=== PATIENT | male | born 1945 | race Caucasian/White ===

== ENCOUNTER 2017-03-04 18:30 | Emergency (ER) | payer OTHER ==
[~2017-03-04] VITALS: Ht 177.8 cm; Wt 91.0 kg
[2017-03-04 18:30] VITALS: BP 159/79; PULSE 78; RESP 18; TEMP 98.9; O2SAT 96
[~2017-03-04 18:30] MED LIST: LEVO125T3 PO; LEVO500T3 PO; LISI-363 PO; LOPR50TA12 PO; MEDR4PAK3 PO; METO50CR PO; ROBA750T3 PO; TERA10CA3 PO
--- NOTE | 2017-03-04 18:47 | PD ---
Physical Exam Date Seen by Provider: Mar 04, 2017 Time Seen by Provider: 18:46 Data Data Last Documented VS Vital Signs Date Time Temp Pulse Resp B/P (MAP) Pulse Ox O2 Delivery O2 Flow Rate FiO2 03/04/17 18:30 98.9 78 18 159/79 (105) 96 Room Air MDM Supervised Visit with JASPAL: No Narrative Course 71 YO M with complaint of "spurting blood from a cut on my arm." Patient states that he was cut by tile while demo-ing a wall. Denies blood blood thinners. Vitals reviewed. Patient seen in triage, awaiting bed placement. Farida Casarez Mar 04, 2017 18:47
[2017-03-04] MEDS ORDERED: TERA10CA3 PO (23:44)
[2017-03-04] MEDS ORDERED: METO50TA11 PO (23:44)
[2017-03-04] MEDS ORDERED: LEVO125T4 PO (23:44)
[2017-03-04] MEDS ORDERED: LISI-515 PO (23:44)
== END 2017-03-04 19:40 | disposition left against medical advice (07) ==
LOC: NED 18:30
DX: S51.811A Laceration without foreign body of right forearm, initial encounter (principal); W26.8XXA Contact with other sharp object(s), not elsewhere classified, initial encounter
CPT/HCPCS: 99281

== ENCOUNTER 2017-03-04 23:20 | Emergency (ER) | payer OTHER ==
[2017-03-04 23:25] VITALS: BP 145/76; PULSE 85; RESP 16; TEMP 98.4; O2SAT 96
[2017-03-04] MEDS ORDERED: TERA10CA3 PO (23:44)
[2017-03-04] MEDS ORDERED: LISI-515 PO (23:44)
[2017-03-04] MEDS ORDERED: METO50TA11 PO (23:44)
[2017-03-04] MEDS ORDERED: LEVO125T4 PO (23:44)
[2017-03-05] MEDS ORDERED: TETANUS/DIPHTHERIA TOXOID ADULT 0.5 ML VIAL IM ONE (01:00)
--- NOTE | 2017-03-05 01:03 | PD ---
HPI Chief Complaint: Skin Problem Time Seen by Provider: 00:45 Travel History International Travel<30 days: No Contact w/Intl Traveler<30days: No Traveled to known affect area: No History of Present Illness HPI 71-year-old male presents for evaluation of a puncture wound to the right forearm. He reports that at 7 PM this evening he was using a crowbar to breakdown and some tile in his bathroom when a piece of tile broke off and hit him in the right forearm. He had some bleeding and he reports that there was some "pulsating" bleeding briefly which resolved. For this reason he presents for evaluation. Denies pain, numbness, tingling, range of motion limitation. Last tetanus vaccination unknown. No other complaints. PFSH Past Medical History Arthritis: Yes Cardiovascular Problems: Yes COPD: Yes Diminished Hearing: No GERD: Yes Genitourinary: Yes Hypertension: Yes Kidney Stones: Yes Musculoskeletal: Yes Neurologic: No Respiratory: Yes Immunizations Current: Yes Sleep Apnea: Yes (wears CPAP) Thyroid Disease: Yes Past Surgical History Genitourinary Surgery: Yes Other Surgery: Yes Social History Alcohol Use: Yes (SOCIALLY) Tobacco Use: Yes (PPD) Substance Use: Yes (marijuana) Allergies-Medications (Allergen,Severity, Reaction): Coded Allergies: Sulfa (Sulfonamide Antibiotics) (Unverified Allergy, Severe, 03/04/17) Reported Meds & Prescriptions Reported Meds & Active Scripts Active Reported Lisinopril 20 Mg Tab 20 Mg PO DAILY Terazosin (Terazosin HCl) 10 Mg Cap 10 Mg PO HS Metoprolol Succinate ER 24 HR (Metoprolol Succinate) 50 Mg Tab 50 Mg PO DAILY Levothyroxine (Levothyroxine Sodium) 125 Mcg Tab 125 Mcg PO DAILY Review of Systems Musculoskeletal: No: Limited ROM, Pain Skin: Positive Other (puncture wound, bleeding) Neurologic: No: Paresthesia Physical Exam Narrative GENERAL: Well-developed well-nourished male in no acute distress SKIN: Warm and dry. There is a 2 mm puncture wound to the dorsal right mid forearm which is not bleeding. No palpable foreign bodies. CARDIOVASCULAR: Regular rate and rhythm. No murmur appreciated. RESPIRATORY: No accessory muscle use. Clear to auscultation. Breath sounds equal bilaterally. MUSCULOSKELETAL: Skin as noted above with no obvious deformity. Distal sensation, pulses preserved. Data Data Last Documented VS Vital Signs Date Time Temp Pulse Resp B/P (MAP) Pulse Ox O2 Delivery O2 Flow Rate FiO2 03/04/17 23:25 98.4 85 16 145/76 (99) 96 Orders Orders Forearm (2vws) (03/05/17 ) Tetanus/Diphtheria Tox Adult (Tetanus/Di (03/05/17 01:00) MDM Medical Decision Making Medical Screen Exam Complete: Yes Emergency Medical Condition: Yes Medical Record Reviewed: Yes Differential Diagnosis Puncture wound, laceration, retained foreign body, neurovascular injury Narrative Course 71-year-old male here for evaluation of a small puncture wound to the dorsal right forearm sustained by a piece of tile. X-ray imaging to rule out radiopaque foreign body will be obtained. The laceration is not bleeding at all even with manipulation and there is no evidence of a major vascular injury. The wound was thoroughly irrigated and then repaired with Dermabond, he verbally consented. Tetanus status updated. Procedures Procedure Narrative LACERATION LOCATION: 2 mm LENGTH: Right forearm NUMBER OF STITCHES/TODD: Dermabond REPAIR: The wound was copiously irrigated and explored without evidence of foreign body, tendon injury or neurovascular injury. The wound was closed using Dermabond. This was a single layer repair. A sterile dressing was applied. The patient was advised to keep the dressing clean and dry. Patient tolerated the procedure well. Diagnosis Primary Impression: Puncture wound Additional Instructions: Keep the wound clean and dry. Do not put any creams or lotions on the wound. The glue will flake off on its own over the next few weeks. Med/Other Pt SpecificInfo: Wound Care Disposition: 01 DISCHARGE HOME Condition: Stable Luis Wood Mar 05, 2017 01:03
--- NOTE | 2017-03-05 01:34 | RADRPT ---
EXAM DATE/TIME: 03/05/2017 01:08 [facility] COMPARISON: No previous studies available for comparison. INDICATIONS : Evaluate for foreign body post cut right proximal forearm with tile. MEDICAL HISTORY : Hypertension. SURGICAL HISTORY : None. ENCOUNTER: Initial ACUITY: 1 day PAIN SCORE: 7/10 LOCATION: Right upper extremity FINDINGS: Two view examination of the right forearm demonstrates no evidence of fracture or dislocation. Bony mineralization is normal. The soft tissue structures are intact. CONCLUSION: 1. No acute findings. No radiopaque foreign body identified. Michael Cevallos MD on March 05, 2017 at 1:32 Board Certified Radiologist. This report was verified electronically.
== END 2017-03-05 02:13 | disposition home or self-care (01) ==
LOC: NED 23:20 → NEPK 03-05 02:13
DX: S51.811A Laceration without foreign body of right forearm, initial encounter (principal); W26.8XXA Contact with other sharp object(s), not elsewhere classified, initial encounter; Y93.H3 Activity, building and construction; Y92.012 Bathroom of single-family (private) house as the place of occurrence of the external cause; Z23 Encounter for immunization
CPT/HCPCS: 12001; 73090; 90471; 90714

== ENCOUNTER 2017-09-28 13:24 | Inpatient (IN) | payer OTHER, MEDICARE ==
[2017-09-28] VITALS (7 sets, daily range): BP systolic 103–147; BP diastolic 60–89; PULSE 59–83; RESP 16–18; TEMP 100.4; O2SAT 94–97
[~2017-09-28] VITALS: Ht 177.8 cm; Wt 92.1 kg
[~2017-09-28 13:24] MED LIST changes: -LEVO125T3 PO; +LEVO125T4 PO; -LEVO500T3 PO; -LISI-363 PO; +LISI-515 PO; -LOPR50TA12 PO; -MEDR4PAK3 PO; +METO1TAB9 PO; -METO50CR PO; -ROBA750T3 PO
--- NOTE | 2017-09-28 15:47 | RADRPT ---
EXAM DATE/TIME: 09/28/2017 15:30 [facility] COMPARISON: FOREARM RIGHT (2VWS), March 05, 2017, 1:08. INDICATIONS : Nausea and vomiting for one day with shortness of breath for three months. MEDICAL HISTORY : Hypertension. Chronic obstructive pulmonary disease. SURGICAL HISTORY : None. ENCOUNTER: Initial ACUITY: 3 months PAIN SCORE: 0/10 LOCATION: Bilateral chest FINDINGS: A single view of the chest demonstrates the lungs to be symmetrically aerated without evidence of mas s, infiltrate or effusion. The cardiomediastinal contours are unremarkable. Osseous structures are intact. CONCLUSION: 1. No acute cardiopulmonary findings are identified. Dre Traylor MD on September 28, 2017 at 15:44 Board Certified Radiologist. This report was verified electronically.
[2017-09-28 16:03] LABS: AUTOMATED NEUTROPHIL # 11.9 TH/MM3 (1.8-7.7); BASOPHIL % 0.3 % (0.0-2.0); EOSINOPHIL # 0.1 TH/MM3 (0-0.4); EOSINOPHIL % 0.9 % (0.0-4.0); HEMATOCRIT 44.5 % (39.0-51.0); HEMOGLOBIN 14.9 GM/DL (13.0-17.0); LYMPHOCYTE # 1.7 TH/MM3 (1.0-4.8); MEAN CELL VOLUME 94.9 FL (80.0-100.0); MEAN CORPUSCULAR HEMOGLOBIN 31.8 PG (27.0-34.0); MEAN CORPUSCULAR HGB CONC 33.5 % (32.0-36.0); MEAN PLATELET VOLUME 8.6 FL (7.0-11.0); MONO % 3.7 % (0.0-8.0); MONOCYTE # 0.5 TH/MM3 (0-0.9); NEUT % 83.1 % (16.0-70.0); PLATELET COUNT 189 TH/MM3 (150-450); RED BLOOD COUNT 4.68 MIL/MM3 (4.50-5.90); RED CELL DISTRIBUTION WIDTH 14.8 % (11.6-17.2); WHITE BLOOD COUNT 14.3 TH/MM3 (4.0-11.0)
[2017-09-28 16:09] LABS: BICARBONATE 27.4 MEQ/L (21.0-32.0); BLOOD UREA NITROGEN 23 MG/DL (7-18); CHLORIDE 104 MEQ/L (98-107); CREATININE 1.79 MG/DL (0.60-1.30); GLOMERULAR FILTRATION RATE 38 ML/MIN (>89); GLUCOSE,RANDOM 97 MG/DL (74-106); SODIUM (NA) 140 MEQ/L (136-145)
[2017-09-28 16:12] LABS: TROPONIN I LESS THAN 0.02 NG/ML (0.02-0.05)
[2017-09-28] MEDS ORDERED: ALUMINUM/MAGNESIUM/SIMETH 30 ML CUP PO ONE (16:15)
[2017-09-28] MEDS ORDERED: LIDOCAINE VISCOUS 2% SOLN 15 ML UDC SWISH-SPIT ONE (16:15)
--- NOTE | 2017-09-28 17:27 | PD ---
HPI Chief Complaint: Respiratory Symptoms Time Seen by Provider: 15:36 Travel History International Travel<30 days: No Contact w/Intl Traveler<30days: No Traveled to known affect area: No History of Present Illness HPI 72-year-old male with a history of COPD, presents today with complaints of shortness of breath and epigastric pain. Patient states that over the last several weeks, he has had progressive shortness of breath. He states that it gets to the point where he feels as though he cannot catch his breath. Patient denies any productive phlegm. He does report coughing and still smokes cigarettes. Patient also reports of pain in his epigastrium. He reports it as a sharp intermittent pain that comes and goes. He reports there is no radiation other than through to his back. There is no exertional component. The patient states he gets winded walking short distances. The patient also states he has felt warm and has had chills. PFSH Past Medical History Arthritis: Yes Cardiovascular Problems: Yes COPD: Yes Diminished Hearing: No GERD: Yes Genitourinary: Yes Hypertension: Yes Kidney Stones: Yes Musculoskeletal: Yes Neurologic: No Respiratory: Yes Immunizations Current: Yes Sleep Apnea: Yes (CPAP) Thyroid Disease: Yes (HYPO ) Past Surgical History Genitourinary Surgery: Yes Other Surgery: Yes Social History Alcohol Use: Yes (SOCIALLY) Tobacco Use: Yes (PPD) Substance Use: Yes (marijuana) Allergies-Medications (Allergen,Severity, Reaction): Coded Allergies: Sulfa (Sulfonamide Antibiotics) (Unverified Allergy, Severe, 09/28/17) Reported Meds & Prescriptions Reported Meds & Active Scripts Active Reported Lisinopril 20 Mg Tab 20 Mg PO DAILY Terazosin (Terazosin HCl) 10 Mg Cap 10 Mg PO HS Metoprolol Succinate ER 24 HR (Metoprolol Succinate) 50 Mg Tab 50 Mg PO DAILY Levothyroxine (Levothyroxine Sodium) 125 Mcg Tab 125 Mcg PO DAILY Review of Systems Except as stated in HPI: all other systems reviewed are Neg General / Constitutional: Positive: Fever ([place] warm), Chills ([place] cold as well) HENT: No: Headaches, Lightheadedness Cardiovascular: Positive: Chest Pain or Discomfort, No: Palpitations Respiratory: Positive: Shortness of Breath, No: Cough, Wheezing Gastrointestinal: Positive: Abdominal Pain (Epigastric pain), No: Nausea, Vomiting Genitourinary: No: Frequency, Dysuria Musculoskeletal: No: Weakness, Pain Neurologic: No: Weakness, Dizziness, Headache Physical Exam Narrative GENERAL: Well-developed well-nourished male in no acute respiratory distress. SKIN: Focused skin assessment warm/dry. HEAD: Atraumatic. Normocephalic. EYES: No scleral icterus. No injection or drainage. ENT: No nasal bleeding or discharge. Mucous membranes pink and moist. NECK: Trachea midline. Supple. CARDIOVASCULAR: Regular rate and rhythm. No murmur appreciated. RESPIRATORY: No accessory muscle use. Clear to auscultation. Breath sounds equal bilaterally. GASTROINTESTINAL: Abdomen soft, non-tender, nondistended. Subjectively, patient has pain in his epigastrium that is not reproducible on exam. MUSCULOSKELETAL: No obvious deformities. No clubbing. No cyanosis. No edema. NEUROLOGICAL: Awake and alert. No obvious cranial nerve deficits. Motor grossly within normal limits. Normal speech. PSYCHIATRIC: Appropriate mood and affect; insight and judgment normal. Data Data Last Documented VS Vital Signs Date Time Temp Pulse Resp B/P (MAP) Pulse Ox O2 Delivery O2 Flow Rate FiO2 09/28/17 15:49 73 18 147/89 (108) 96 Room Air 09/28/17 14:08 100.4 Orders Orders Electrocardiogram (09/28/17 15:01) Complete Blood Count With Diff (09/28/17 15:01) Basic Metabolic Panel (Bmp) (09/28/17 15:01) Ckmb (Isoenzyme) Profile (09/28/17 15:01) Troponin I (09/28/17 15:01) Chest, Single Ap (09/28/17 15:01) Influenzae A/B Antigen (09/28/17 15:45) Al-Mag Hy-Si 40-40-4 Mg/Ml Liq (Mag-Al P (09/28/17 16:15) Lidocaine 2% Viscous (Xylocaine 2% Visco (09/28/17 16:15) CKMB (09/28/17 15:15) CKMB% (09/28/17 15:15) Arterial Blood Gas (Abg) (09/28/17 17:16) Admit Order (Ed Use Only) (09/28/17 18:06) Labs Laboratory Tests Test 09/28/17 15:15 White Blood Count 14.3 TH/MM3 Red Blood Count 4.68 MIL/MM3 Hemoglobin 14.9 GM/DL Hematocrit 44.5 % Mean Corpuscular Volume 94.9 FL Mean Corpuscular Hemoglobin 31.8 PG Mean Corpuscular Hemoglobin Concent 33.5 % Red Cell Distribution Width 14.8 % Platelet Count 189 TH/MM3 Mean Platelet Volume 8.6 FL Neutrophils (%) (Auto) 83.1 % Lymphocytes (%) (Auto) 12.0 % Monocytes (%) (Auto) 3.7 % Eosinophils (%) (Auto) 0.9 % Basophils (%) (Auto) 0.3 % Neutrophils # (Auto) 11.9 TH/MM3 Lymphocytes # (Auto) 1.7 TH/MM3 Monocytes # (Auto) 0.5 TH/MM3 Eosinophils # (Auto) 0.1 TH/MM3 Basophils # (Auto) 0.0 TH/MM3 CBC Comment DIFF FINAL Differential Comment Blood Urea Nitrogen 23 MG/DL Creatinine 1.79 MG/DL Random Glucose 97 MG/DL Calcium Level 9.0 MG/DL Sodium Level 140 MEQ/L Potassium Level 3.8 MEQ/L Chloride Level 104 MEQ/L Carbon Dioxide Level 27.4 MEQ/L Anion Gap 9 MEQ/L Estimat Glomerular Filtration Rate 38 ML/MIN Total Creatine Kinase 453 U/L Creatine Kinase MB 3.5 NG/ML Creatine Kinase MB % 0.8 % Troponin I LESS THAN 0.02 NG/ML MDM Medical Decision Making Medical Screen Exam Complete: Yes Emergency Medical Condition: Yes Differential Diagnosis COPD exacerbation versus peptic ulcer disease versus ACS Narrative Course 72-year-old male with history of COPD, presents today with complaints of shortness of breath. Patient also complaining of epigastric pain. Patient's EKG shows inverted T waves in V2 through V6. The patient's cardiac enzymes are within normal limits. Concern is that this may be ACS. The patient has been given an aspirin. He is also has nitroglycerin paste placed on his anterior chest wall. Given his EKG changes, I will recommend that we put the patient in the hospital rather than the chest pain center. There is a call out to the [facility] hospitalist for admission. Diagnosis Primary Impression: Shortness of breath Additional Impressions: Epigastric pain/chest pain. History of COPD Rudolph Hsu MD Sep 28, 2017 17:27
[2017-09-28] MEDS ORDERED: SENNOSIDES 8.6 MG TAB PO PRN (18:15)
[2017-09-28] MEDS ORDERED: SODIUM CHLORIDE 0.9% FLUSH 10 ML FLUSH IV FLUSH PRN (18:15)
[2017-09-28] MEDS ORDERED: LACTULOSE SYRUP 20 GM/30 ML CUP PO PRN (18:15)
[2017-09-28] MEDS ORDERED: NITROGLYCERIN 2% OINT 1 GM PACKET TOPICAL ONE (18:15)
[2017-09-28] MEDS ORDERED: NALOXONE HCL 0.4 MG/ML AMP IV PUSH PRN (18:15)
[2017-09-28] MEDS ORDERED: ASPIRIN 81 MG CHEW TAB CHEW ONE (18:15)
[2017-09-28] MEDS ORDERED: ACETAMINOPHEN 325 MG TAB PO PRN (18:15)
[2017-09-28] MEDS ORDERED: BISACODYL 10 MG SUPP RECTAL PRN (18:15)
[2017-09-28] MEDS: SODIUM CHLOR 0.9% 1000 ML INJ 1,000 ML IV SCH (18:57)
[2017-09-28] MEDS: ONDANSETRON HCL 4 MG/2 ML VIAL IVP PRN (18:59)
[2017-09-28] MEDS: RESP: ALBUTEROL 2.5 MG/IPRATROPIUM 0.5 MG NEB (SCH) NEB ×2 (19:23→23:56)
--- NOTE | 2017-09-28 20:38 | HHI.HP ---
HPI [facility] Primary Care Physician Griselda Chavarria MD Admission Diagnosis Shortnes of breath, epigastric pain/chest pain, ekg changes Diagnoses: Travel History International Travel<30 Days: No Contact w/Intl Traveler <30 Da: No Traveled to Known Affected Are: No History of Present Illness -year-old male with a past medical history significant for hypertension, COPD, hypothyroidism and JARETH presents to the emergency department for evaluation of epigastric pain. The patient states that his pain is in the epigastrium and radiates to his shoulder blades and is has accompanying lower substernal pain/ pressure. He describes pain as an 8 out of 10. He has a two-month history of this pain occurring intermittently. He has a cough productive of yellowish- green sputum. He also complains of paroxysmal nocturnal dyspnea. The patient denies any edema. Has no diagnosis of CHF. He works as accompanying shortness of breath and nausea. No emesis or diarrhea. No lateralizing signs/symptoms. Denies any fever/chills. Review of Systems Except as stated in HPI: all other systems reviewed are Neg Past Family Social History Past Medical History hypertension, COPD, hypothyroidism and JARETH Past Surgical History Laminectomy Reported Medications Reported Meds & Active Scripts Active Reported Lisinopril 20 Mg Tab 20 Mg PO DAILY Terazosin (Terazosin HCl) 10 Mg Cap 10 Mg PO HS Metoprolol Succinate ER 24 HR (Metoprolol Succinate) 50 Mg Tab 50 Mg PO DAILY Levothyroxine (Levothyroxine Sodium) 125 Mcg Tab 125 Mcg PO DAILY Allergies: Coded Allergies: Sulfa (Sulfonamide Antibiotics) (Unverified Allergy, Severe, 09/28/17) Family History Mother with diabetes mellitus. Father of [place] at age 48. Social History Smokes approximately one pack per day. Occasional alcohol. Positive marijuana. Denies all other illicit drugs. Physical Exam Vital Signs Vital Signs Date Time Temp Pulse Resp B/P (MAP) Pulse Ox O2 Delivery O2 Flow Rate FiO2 09/28/17 19:13 73 18 109/63 (78) 95 Room Air 09/28/17 18:21 80 18 130/78 (95) 97 Room Air 09/28/17 15:49 73 18 147/89 (108) 96 Room Air 09/28/17 15:45 80 18 96 Room Air 09/28/17 14:08 100.4 83 16 146/88 (107) 96 Physical Exam GENERAL: Obese, male sitting up SKIN: No rashes, ecchymoses or lesions. Cool and dry. HEAD: Atraumatic. Normocephalic. No temporal or scalp tenderness. EYES: Pupils equal round and reactive. Extraocular motions intact. No scleral icterus. No injection or drainage. ENT: Nose without bleeding, purulent drainage or septal hematoma. Throat without erythema, tonsillar hypertrophy or exudate. Uvula midline. Airway patent. NECK: Trachea midline. No JVD or lymphadenopathy. Supple, nontender, no meningeal signs. CARDIOVASCULAR: Regular rate and rhythm without murmurs, gallops, or rubs. RESPIRATORY: Bilateral expiratory wheezes. GASTROINTESTINAL: Abdomen soft, non-tender, nondistended. No hepato-splenomegaly , or palpable masses. MUSCULOSKELETAL: Extremities without clubbing, cyanosis, or edema. No joint tenderness, effusion, or edema noted. No calf tenderness. NEUROLOGICAL: Awake and alert. Cranial nerves II through XII intact. Motor and sensory grossly within normal limits. Normal speech. Laboratory Laboratory Tests Test 09/28/17 15:15 09/28/17 17:22 White Blood Count 14.3 Red Blood Count 4.68 Hemoglobin 14.9 Hematocrit 44.5 Mean Corpuscular Volume 94.9 Mean Corpuscular Hemoglobin 31.8 Mean Corpuscular Hemoglobin Concent 33.5 Red Cell Distribution Width 14.8 Platelet Count 189 Mean Platelet Volume 8.6 Neutrophils (%) (Auto) 83.1 Lymphocytes (%) (Auto) 12.0 Monocytes (%) (Auto) 3.7 Eosinophils (%) (Auto) 0.9 Basophils (%) (Auto) 0.3 Neutrophils # (Auto) 11.9 Lymphocytes # (Auto) 1.7 Monocytes # (Auto) 0.5 Eosinophils # (Auto) 0.1 Basophils # (Auto) 0.0 CBC Comment DIFF FINAL Differential Comment Blood Urea Nitrogen 23 Creatinine 1.79 Random Glucose 97 Calcium Level 9.0 Sodium Level 140 Potassium Level 3.8 Chloride Level 104 Carbon Dioxide Level 27.4 Anion Gap 9 Estimat Glomerular Filtration Rate 38 Total Creatine Kinase 453 Creatine Kinase MB 3.5 Creatine Kinase MB % 0.8 Troponin I LESS THAN 0.02 Blood Gas Puncture Site RT RADIAL Blood Gas Patient Temperature 98.6 Blood Gas HCO3 25 Blood Gas Base Excess 1.3 Blood Gas Oxygen Saturation 93 Arterial Blood pH 7.48 Arterial Blood Partial Pressure CO2 33 Arterial Blood Partial Pressure O2 77 Arterial Blood Oxygen Content 18.5 Arterial Blood Carboxyhemoglobin 2.3 Arterial Blood Methemoglobin 0.9 Blood Gas Hemoglobin 14.1 Oxygen Delivery Device ROOM AIR Blood Gas Inspired Oxygen 21 Date/Time Source Procedure Growth Status 09/28/17 17:18 Nasal Aspirate Influenza Types A,B Antigen (DENITA) - Final NEGATIVE FOR FLU A AND B ANTIGEN.... Complete Result Diagram: 09/28/17 1515 09/28/17 1515 Caprini VTE Risk Assessment Caprini VTE Risk Assessment: Mod/High Risk (score >= 2) Caprini Risk Assessment Model Point Value = 1 Point Value = 2 Point Value = 3 Point Value = 5 Age 41-60 Minor surgery BMI > 25 kg/m2 Swollen legs Varicose veins or History of unexplained or recurrent spontaneous Oral contraceptives or hormone replacement Sepsis (< 1 month) Serious lung disease, including pneumonia (< 1 month) Abnormal pulmonary function Acute myocardial infarction Congestive heart failure (< 1 month) History of inflammatory bowel disease Medical patient at bed rest Age 61-74 Arthroscopic surgery Major open surgery (> 45 min) Laparoscopic surgery (> 45 min) Malignancy Confined to bed (> 72 hours) Immobilizing plaster cast Central venous access Age >= 75 History of VTE Family history of VTE Factor V Leiden Prothrombin [id number] Lupus anticoagulant Anticardiolipin antibodies Elevated serum homocysteine Heparin-induced thrombocytopenia Other congenital or acquired thrombophilia Stroke (< 1 month) Elective arthroplasty Hip, pelvis, or leg fracture Acute spinal cord injury (< 1 month) Prophylaxis Regimen Total Risk Factor Score Risk Level Prophylaxis Regimen 0-1 Low Early ambulation 2 Moderate Order ONE of the following: *Sequential Compression Device (SCD) *Heparin 5000 units SQ BID 3-4 Higher Order ONE of the following medications: *Heparin 5000 units SQ TID *Enoxaparin/Lovenox 40 mg SQ daily (WT < 150 kg, CrCl > 30 mL/min) *Enoxaparin/Lovenox 30 mg SQ daily (WT < 150 kg, CrCl > 10-29 mL/min) *Enoxaparin/Lovenox 30 mg SQ BID (WT < 150 kg, CrCl > 30 mL/min) AND/OR *Sequential Compression Device (SCD) 5 or more Highest Order ONE of the following medications: *Heparin 5000 units SQ TID (Preferred with Epidurals) *Enoxaparin/Lovenox 40 mg SQ daily (WT < 150 kg, CrCl > 30 mL/min) *Enoxaparin/Lovenox 30 mg SQ daily (WT < 150 kg, CrCl > 10-29 mL/min) *Enoxaparin/Lovenox 30 mg SQ BID (WT < 150 kg, CrCl > 30 mL/min) AND *Sequential Compression Device (SCD) Assessment and Plan Assessment and Plan Assessment/plan: 1. Epigastric/chest pain Concern for ACS Initial troponin negative EKG shows normal sinus rhythm with T-wave inversion in leads V2 through V5, personally reviewed ACS rule out pending; serial troponins/EACs Cardiology consulted, appreciate recommendations 2. COPD exacerbation/shortness of breath Patient with bilateral wheezes Chest x-ray negative for acute process DuoNeb's Supplemental oxygen as needed IV steroids Levaquin is patient with increased shortness of breath and purulent sputum 3. Hypertension/JARETH/hypothyroidism Continue home medications FEN Heart healthy diet Electrolytes: monitor and replete prn Heparin Physician Certification 2 Midnight Certification Type: Admission for Inpatient Services Order for Inpatient Services The services are ordered in accordance with Medicare regulations or non- Medicare payer requirements, as applicable. In the case of services not specified as inpatient-only, they are appropriately provided as inpatient services in accordance with the 2-midnight benchmark. Estimated LOS (days): 2 2 days is the estimated time the patient will need to remain in the hospital, assuming treatment plan goals are met and no additional complications. Post-Hospital Plan: Not yet determined Linn Santiago MD Sep 28, 2017 20:38
[2017-09-28] MEDS: SODIUM CHLORIDE 0.9% FLUSH 10 ML FLUSH IV FLUSH SCH (21:00)
[2017-09-28] MEDS: HEPARIN SODIUM - SQ 10,000 UNITS/ML VIAL SQ SCH (22:04)
[2017-09-28] MEDS: methylPREDNISolone SOD SUCC 40 MG/1 ML VIAL IV PUSH SCH (22:04)
[2017-09-28] MEDS: LEVOFLOXACIN 750 MG PREMIX INJ 150 ML IV SCH (22:07)
[2017-09-28 22:11] LABS: TROPONIN I LESS THAN 0.02 NG/ML (0.02-0.05)
[2017-09-28] MEDS: guaiFENesin E.R. 600 MG TAB PO SCH (22:33)
[2017-09-28] MEDS: TERAZOSIN HCL 5 MG CAP PO SCH (22:34)
[2017-09-29] VITALS (12 sets, daily range): BP systolic 99–142; BP diastolic 57–85; PULSE 65–89; RESP 18–20; TEMP 96.7–98.8; O2SAT 94–99
[2017-09-29] MEDS: SODIUM CHLOR 0.9% 1000 ML INJ 1,000 ML IV SCH ×4 (00:52→21:29)
[2017-09-29 02:08] LABS: BILIRUBIN, URINE NEG (NEG); BLOOD, URINE NEG (NEG); GLUCOSE,URINE NEG (NEG); KETONE, URINE NEG (NEG); MUCUS URINE FEW /lpf (OCC); NITRITE,URINE NEG (NEG); URINE COLOR YELLOW (YELLW/STRAW); URINE LEUKOCYTE ESTERASE NEG (NEG)
[2017-09-29] MEDS: RESP: ALBUTEROL 2.5 MG/IPRATROPIUM 0.5 MG NEB (SCH) NEB ×5 (02:38→19:51)
[2017-09-29] MEDS ORDERED: ALPRAZolam 0.25 MG TAB PO ONE ×2 (02:45→23:30)
[2017-09-29 03:08] LABS: AUTOMATED NEUTROPHIL # 8.4 TH/MM3 (1.8-7.7); BASOPHIL # 0.1 TH/MM3 (0-0.2); BASOPHIL % 0.8 % (0.0-2.0); EOSINOPHIL % 0.4 % (0.0-4.0); HEMATOCRIT 37.4 % (39.0-51.0); HEMOGLOBIN 12.9 GM/DL (13.0-17.0); LYMPH % 11.7 % (9.0-44.0); LYMPHOCYTE # 1.1 TH/MM3 (1.0-4.8); MEAN CELL VOLUME 94.1 FL (80.0-100.0); MEAN CORPUSCULAR HEMOGLOBIN 32.3 PG (27.0-34.0); MEAN CORPUSCULAR HGB CONC 34.3 % (32.0-36.0); MEAN PLATELET VOLUME 9.2 FL (7.0-11.0); MONO % 1.2 % (0.0-8.0); MONOCYTE # 0.1 TH/MM3 (0-0.9); NEUT % 85.9 % (16.0-70.0); PLATELET COUNT 179 TH/MM3 (150-450); RED BLOOD COUNT 3.98 MIL/MM3 (4.50-5.90); RED CELL DISTRIBUTION WIDTH 14.6 % (11.6-17.2); WHITE BLOOD COUNT 9.7 TH/MM3 (4.0-11.0)
[2017-09-29 03:18] LABS: INTERNATIONAL NORMALIZED RATIO 1.1 RATIO; PROTHROMBIN TIME - PATIENT 11.2 SEC (9.8-11.6)
[2017-09-29 03:33] LABS: BICARBONATE 23.8 MEQ/L (21.0-32.0); CREATININE 1.7 MG/DL (0.60-1.30)
[2017-09-29 03:35] LABS: TROPONIN I LESS THAN 0.02 NG/ML (0.02-0.05)
[2017-09-29] MEDS: methylPREDNISolone SOD SUCC 40 MG/1 ML VIAL IV PUSH SCH ×3 (06:00→21:24)
[2017-09-29] MEDS: LEVOTHYROXINE SODIUM 125 MCG TAB PO SCH (06:00)
[2017-09-29] MEDS: HEPARIN SODIUM - SQ 10,000 UNITS/ML VIAL SQ SCH ×2 (08:45→21:23)
[2017-09-29] MEDS: METOPROLOL SUCCINATE 50 MG EXTENDED RELEASE TAB PO SCH (08:45)
[2017-09-29] MEDS: guaiFENesin E.R. 600 MG TAB PO SCH ×2 (08:47→21:23)
[2017-09-29] MEDS: SODIUM CHLORIDE 0.9% FLUSH 10 ML FLUSH IV FLUSH SCH ×2 (09:00→21:24)
[2017-09-29] MEDS ORDERED: LISINOPRIL 20 MG TAB PO SCH (09:00)
[2017-09-29] MEDS ORDERED: DIAZEPAM 5 MG TAB PO SCH (10:15)
[2017-09-29] MEDS ORDERED: diphenhydrAMINE HCL 50 MG CAP PO SCH (10:15)
[2017-09-29] MEDS ORDERED: ASPIRIN 325 MG TAB PO SCH (10:15)
--- NOTE | 2017-09-29 10:32 | EKG ---
Date Performed: 09/28/2017 Time Performed: 15:48:13 PTAGE: 72 years EKG: Sinus rhythm ST DEVIATION AND MODERATE T-WAVE ABNORMALITY, CONSIDER ANTEROLATERAL ISCHEMIA ABNORMAL ECG Compared to PREVIOUS TRACING the T waves are now inverted and thus more concerning for ischemia. Cli nical correlation is recommended PREVIOUS TRACIN04/11/2005 11.54 DOCTOR: Lynn Parks Interpretating Date/Time 09/29/2017 10:31:18
--- NOTE | 2017-09-29 11:01 | MB ---
cc: Dane Hadley MD DATE OF CONSULT: 09/29/2017 REASON FOR CONSULTATION: Evaluation of chest pain. HISTORY OF PRESENT ILLNESS: Galileo Travis is a 72-year-old man admitted to the hospital with COPD exacerbation, also having unstable anginal symptoms. He describes chest pain as a pressure feeling substernally. It radiates upwards and to his neck. It started 2-3 months ago. It comes on with stress. It is lasting for longer periods of time. He had multiple episodes yesterday. Currently on nitroglycerin ointment. He has a history of a nonischemic nuclear stress test back in 2012. He has continued to smoke. He came in also with profound dyspnea, which has improved since admission. PAST MEDICAL HISTORY: Includes hypertension, COPD, hypothyroidism, sleep apnea which is untreated and kidney stones. PAST SURGICAL HISTORY: Includes thyroid biopsy, ruptured disc laminectomy. MEDICATIONS: 1. Currently on lisinopril 20 mg. 2. Metoprolol ER 50 mg. 3. Aspirin. 4. Terazosin 10 mg at bedtime. 5. Levothyroxine 6. Noncardiac medications, including steroids. FAMILY HISTORY: Father of an [place] at age 48. Mother had diabetes. SOCIAL HISTORY: Smoking a pack a day. Occasional marijuana. REVIEW OF SYSTEMS: Negative for any bleeding. Remaining review of systems negative. PHYSICAL EXAMINATION: GENERAL: Well-developed, well-nourished white male, does not appear to be in acute distress. VITAL SIGNS: Charted. HEENT: Unremarkable. NECK: Shows bilateral bruits. CHEST: Diminished breath sounds, a few scattered expiratory wheezes. HEART: S1, S2. Regular rate and rhythm, I/ systolic ejection murmur. ABDOMEN: Soft, nontender. No masses or organomegaly. EXTREMITIES: No clubbing, cyanosis or edema. Pulses are intact. IMAGING STUDIES: Chest x-ray report shows no acute abnormalities identified. LABORATORY DATA: Hematocrit 37.4. Creatinine is 1.70. It was 1.79 the day before. Troponins negative x 3. INR is normal. EKG shows sinus rhythm, diffuse nonspecific ST-T wave changes. Changes are much more prominent from his old tracing. IMPRESSION: This is a 72-year-old male with chronic obstructive pulmonary disease exacerbation and also sounds like he has unstable angina. His chest discomfort is very worrisome. He has EKG changes as well. RECOMMENDATIONS: I discussed the options of doing a diagnostic catheterization versus a nuclear stress test. He is agreeable with a diagnostic catheterization recognizing increased risk of renal failure because of the elevated creatinine. We will get an echo today to assess LV function and try to minimize contrast use during his catheterization. Plan is to perform diagnostic catheterization tomorrow morning at 7:30. I am adding nitro paste 1 inch q.6 hours on top of his beta juan. Continue an aspirin. Further therapy to be determined based on the findings. MD NABEEL Hanson/ANTWAN , 10:22 AM , 10:59 AM
--- NOTE | 2017-09-29 11:48 | RADRPT ---
EXAM DATE/TIME: 09/29/2017 11:10 [place] COMPARISON: No previous studies available for comparison. INDICATIONS : Bruit. MEDICAL HISTORY : Hypothyroidism. Arthritis. Renal calculi. Sleep apnea. GERD. COPD. HTN. Substance use. Tobacco use. SURGICAL HISTORY : Laminectomy. ENCOUNTER: Initial ACUITY: 1 month PAIN SCORE: 6/10 LOCATION: Bilateral neck PEAK SYSTOLIC VELOCITIES (cm/sec): ICA/CCA RATIO: Right: 0.7 Left: 0.8 ICA: Right: 53 Left: 79 CCA: Right: 75 Left: 95 ECA: Right: 48 Left: 65 VERTEBRAL: Right: 27 antegrade Left: 44 antegrade Elevated flow velocities and ICA/CCA ratios have been found to correlate with increased degrees of vessel stenosis, calculated as percentage of diameter relative to a normal segment of distal ICA/CCA FINDINGS: RIGHT CAROTID: No significant stenosis is visualized. The waveforms are within normal limits. LEFT CAROTID: No significant stenosis is visualized. The waveforms are within normal limits. VERTEBRAL ARTERIES: Antegrade flow is seen in both vertebral arteries. MISCELLANEOUS: None. CONCLUSION: 1. Bilateral calcified carotid plaque without significant flow-limiting stenosis. 2. Antegrade vertebral artery flow bilaterally. Thierry Richard MD on September 29, 2017 at 11:45 Board Certified Radiologist. This report was verified electronically.
[2017-09-29] MEDS: NITROGLYCERIN 2% OINT 1 GM PACKET TOPICAL SCH ×3 (12:26→23:31)
--- NOTE | 2017-09-29 13:38 | HHI.PR ---
Subjective Remarks Follow-up for chest pain and shortness of breathing Patient stated that shortness of breathing is improved. He says though there are times where he will wake up because he feels like there is a knot in his epigastric area. He said that would last about 10 seconds. Denies nausea or vomiting. He has no other complaints. Patient continues to smoke tobacco. Denies any lightheadedness or dizziness. Objective Vitals Vital Signs Date Time Temp Pulse Resp B/P (MAP) Pulse Ox O2 Delivery O2 Flow Rate FiO2 09/29/17 12:08 97.8 74 20 105/58 (74) 97 09/29/17 08:41 96.7 89 20 101/58 (72) 99 09/29/17 04:29 Nasal Cannula 2.00 09/29/17 03:09 97.4 70 20 99/58 (72) 98 09/29/17 00:59 74 09/29/17 00:30 97.9 66 18 99/57 (71) 94 09/28/17 23:19 59 18 103/60 (74) 96 Room Air 09/28/17 21:15 70 18 108/72 (84) 95 Room Air 09/28/17 19:25 97 21 09/28/17 19:13 73 18 109/63 (78) 95 Room Air 09/28/17 18:21 80 18 130/78 (95) 97 Room Air 09/28/17 15:49 73 18 147/89 (108) 96 Room Air 09/28/17 15:45 80 18 96 Room Air 09/28/17 14:08 100.4 83 16 146/88 (107) 96 I/O 09/28/17 09/28/17 09/28/17 09/29/17 09/29/17 09/29/17 07:00 15:00 23:00 07:00 15:00 23:00 Intake Total 150 ml Output Total 200 ml 925 ml Balance -50 ml -925 ml Intake IV Total 150 ml Output Urine Total 200 ml 925 ml Result Diagram: 09/29/17 0240 09/29/17 0240 Objective Remarks GENERAL: in NAD CARDIOVASCULAR: Regular rate and rhythm without murmurs, gallops, or rubs. RESPIRATORY: Diffuse rhonchi. No wheezing noted. No accessory muscle use. Lung exam was examined 10 minutes after completion of the duo nebs. GASTROINTESTINAL: Abdomen soft, non-tender, nondistended. MUSCULOSKELETAL: No cyanosis, or edema. BACK: Nontender without obvious deformity. No CVA tenderness. Medications and IVs Current Medications Al Hydrox/Mg Hydrox/Simethicone (Mag-Al Plus Susp Liq) 30 ml ONCE ONCE PO Last administered on 09/28/17at 16:28; Start 09/28/17 at 16:15; Stop 09/28/17 at 16:16; Status DC Lidocaine HCl (Xylocaine 2% Viscous) 15 ml ONCE ONCE SWISH-SPIT Last administered on 09/28/17at 16:28; Start 09/28/17 at 16:15; Stop 09/28/17 at 16:16 ; Status DC Aspirin (Aspirin Chew) 324 mg ONCE ONCE CHEW Last administered on 09/28/17at 18 :20; Start 09/28/17 at 18:15; Stop 09/28/17 at 18:16; Status DC Nitroglycerin (Nitroglycerin 2% Oint) 2 inch ONCE ONCE TOPICAL Last administered on 09/28/17at 18:21; Start 09/28/17 at 18:15; Stop 09/28/17 at 18:16 ; Status DC Sodium Chloride 1,000 ml @ 83 mls/hr Q12H3M IV Last administered on 09/29/17at 00:52; Start 09/28/17 at 18:10 Sodium Chloride (NS Flush) 2 ml UNSCH PRN IV FLUSH FLUSH AFTER USING IV ACCESS ; Start 09/28/17 at 18:15 Sodium Chloride (NS Flush) 2 ml BID IV FLUSH ; Start 09/28/17 at 21:00 Acetaminophen (Tylenol) 650 mg Q4H PRN PO TEMP > 100.4; Start 09/28/17 at 18:15 Ondansetron HCl (Zofran Inj) 4 mg Q6H PRN IVP NAUSEA OR VOMITING Last administered on 09/28/17at 18:59; Start 09/28/17 at 18:15 Naloxone HCl (Narcan Inj) 0.4 mg UNSCH PRN IV PUSH SEE LABEL COMMENTS; Start at 18:15 Sennosides (Senokot) 17.2 mg Q12H PRN PO Moderate constipation; Start 09/28/17 at 18:15 Bisacodyl (Dulcolax Supp) 10 mg DAILY PRN RECTAL SEVERE CONSITIPATION; Start at 18:15 Lactulose (Lactulose Liq) 30 ml DAILY PRN PO SEVERE CONSITIPATION; Start at 18:15 Levothyroxine Sodium (Synthroid) 125 mcg DAILY@0600 PO ; Start 09/29/17 at 06:00 Lisinopril (Prinivil) 20 mg DAILY PO Last administered on 09/29/17at 08:45; Start 09/29/17 at 09:00 Metoprolol Succinate (Toprol Xl) 50 mg DAILY PO Last administered on 09/29/17 08:45; Start 09/29/17 at 09:00 Terazosin HCl (Hytrin) 10 mg HS PO Last administered on 09/28/17at 22:34; Start 09/28/17 at 21:00 Albuterol/ Ipratropium (Duoneb Neb) 1 ampule Q4HR NEB NEB Last administered on 09/29/17at 11:50; Start 09/28/17 at 20:00 Guaifenesin (Mucinex Er) 600 mg BID PO Last administered on 09/29/17at 08:47; Start 09/28/17 at 21:00 Heparin Sodium (Porcine) (Heparin Inj) 5,000 units Q12HR SQ Last administered on 09/29/17at 08:45; Start 09/28/17 at 21:00 Methylprednisolone Sodium Succinate (SoluMEDROL INJ) 40 mg Q8HR IV PUSH Last administered on 09/29/17at 06:00; Start 09/28/17 at 22:00 Levofloxacin/ Dextrose 150 ml @ 100 mls/hr Q24H IV Last administered on at 22:07; Start 09/28/17 at 22:00 Alprazolam (Xanax) 0.25 mg ONCE ONCE PO Last administered on 09/29/17at 02:45; Start 09/29/17 at 02:45; Stop 09/29/17 at 02:46; Status DC Nitroglycerin (Nitroglycerin 2% Oint) 1 inch Q6HR TOPICAL Last administered on 09/29/17at 12:26; Start 09/29/17 at 12:00 Sodium Chloride 1,000 ml @ 100 mls/hr Q10H IV ; Start 09/29/17 at 10:14; Stop 10/04/17 at 10:13 Aspirin (Aspirin) 325 mg PAPER CUTTING MACHINE OPERATOR PO ; Start 09/29/17 at 10:15; Stop 10/03/17 at 10:14 Diphenhydramine HCl (Benadryl) 25 mg PAPER CUTTING MACHINE OPERATOR PO ; Start 09/29/17 at 10:15; Stop 10/03/17 at 10:14 Diazepam (Valium) 5 mg PAPER CUTTING MACHINE OPERATOR PO ; Start 09/29/17 at 10:15; Stop 10/03/17 at 10:14 A/P Assessment and Plan This is a 72-year-old male who presented with epigastric pain and shortness of breathing 1. Epigastric/chest pain Concern for ACS Initial troponin negative EKG shows normal sinus rhythm with T-wave inversion in leads V2 through V5, personally reviewed Head Athletic Trainer/Strength Coach consulted and patient scheduled for cardiac catheterization tomorrow. On aspirin, metoprolol, and nitro. 2. COPD exacerbation/shortness of breath Improving. Patient is not on any home oxygen. Chest x-ray negative for acute process Continue with scheduled DuoNeb's, albuterol as needed, IV steroids, and Levaquin. Smoking cessation. 3. Hypertension/JARETH/hypothyroidism Continue home medications 4. Tobacco dependence Smoking cessation. DVT prophylaxis -On heparin. Discharge Planning Patient scheduled for cardiac catheterization tomorrow. Susan Morris MD Sep 29, 2017 13:38
[2017-09-29] MEDS: TERAZOSIN HCL 5 MG CAP PO SCH (21:23)
[2017-09-29] MEDS: LEVOFLOXACIN 750 MG PREMIX INJ 150 ML IV SCH (21:24)
[2017-09-30] MEDS: RESP: ALBUTEROL 2.5 MG/IPRATROPIUM 0.5 MG NEB (SCH) NEB ×4 (01:03→11:38)
[2017-09-30 03:30] VITALS: BP 123/56; PULSE 76; RESP 20; TEMP 97.4; O2SAT 97
[2017-09-30 03:41] VITALS: PULSE 59
[2017-09-30] MEDS: LEVOTHYROXINE SODIUM 125 MCG TAB PO SCH (05:34)
[2017-09-30] MEDS: methylPREDNISolone SOD SUCC 40 MG/1 ML VIAL IV PUSH SCH (05:34)
[2017-09-30] MEDS: NITROGLYCERIN 2% OINT 1 GM PACKET TOPICAL SCH ×3 (05:34→18:37)
[2017-09-30] MEDS: SODIUM CHLOR 0.9% 1000 ML INJ 1,000 ML IV SCH ×2 (05:35→16:14)
[2017-09-30] MEDS: ONDANSETRON HCL 4 MG/2 ML VIAL IVP PRN (06:11)
[2017-09-30] MEDS ORDERED: diphenhydrAMINE HCL 25 MG CAP PO SCH (07:00)
[2017-09-30] MEDS ORDERED: HEPARIN-NS/PF FLUSH BAG 2,000 ML IV FLUSH ONE (07:13)
[2017-09-30] MEDS ORDERED: MIDAZOLAM HCL 2 MG/2 ML VIAL ONE (07:14)
[2017-09-30 07:49] LABS: BICARBONATE 22.3 MEQ/L (21.0-32.0); CALCIUM 8.6 MG/DL (8.5-10.1); CREATININE 1.56 MG/DL (0.60-1.30)
--- NOTE | 2017-09-30 08:07 | CATHPROC ---
Healthcare IT HIS Report Study Information Study Number Admission Scheduled Start Study Start [id number] Sep 28 2017 6:08PM 09/29/2017 Sep 30 2017 7:06AM [place] Service Cardiac Catheterization Admit Source Facility Department Emergency department [facility] - Territory Business Manager Physician and Clinical Staff Initial Dane Marquez Injection Moulding Machine Operator Toy Love,NIA Other cathlab, cathlab Recorder Natanael Gu RCIS(BS) Scrub Mikayla Browne,TRANSFORMER TESTER TECH2 Procedures Performed Procedure Location (Site) Vessel Name Coronary Angiograms LCA Left Coronary Coronary Angiograms RCA Right Coronary L Heart Cath Equipment Time Antenna Installer Description Size Mfg Part Number Used/Scraped TRANSDUCER, TRUWAVE [id number] 07:08 POLLOCK GILLIAM * Used W/STOCKCOCK *[id number] *[id number] *[id number] PIGTAIL ANG. 145 INFINITI 534-652S CATHETER *[id number] 07:08 [employer] INDUSTRIES PACK, CCL CUSTOM * Used *[id number] 07:08 [employer] PACER PEN, SKIN DUAL W/ RULER * Used *[id number] 07:08 [employer] SHEATH, FR6.5 PRELUDE 11CM FR 6.5 038ACT Used *[id number] 07:08 [employer] WIRE, 3MMJ .035 180CM 180CM Used *[id number] 07:08 NAMIC MANIFOLD, 4 PORT * Used *[id number] 07:08 [employer] OMNIPAQUE, 350 MG, 100ML 100ML [id number] Used [id number] 07:08 [employer] [facility] BLANKET,WARM AIR CCL * Used *[id number] History: Current Medications Medication Dosage/Unit Route Frequency Last Date/Time Taken Beta Flaco History: Allergies Allergy Reaction Sulfa (Sulfonamide Antibiotics) History: Risk Factors Family History of Hypertension Dyslipidemia Previous AR Previous Heart Failure Premature CAD Yes No No No No Prior Valve Prior PCI Prior CABG Surgery No No No Cerebrovascular Peripheral Artery Chronic Lung On Dialysis Diabetes Disease Disease Disease No No No Yes No History: Symptoms/Diagnosis Selection Items Chest pain History: Stress Tests Stress or Imaging Studies Performed No History: Other Disease Selection Items HTN History: Other Current Smoker Method Packs a Day Years Used Pack Years Yes Cigarettes 1 49 49 Labs Hgb (g/dl) Hct (%) WBC (l/cumm) Platelets (thousands) 11.60-17.00 35.00-51.00 4.00-11.00 150.00-450.00 12.9 37.4 9.7 179 Glucose (mg/dl) BUN (mg/dl) Creatinine (mg/dl) BUN:Creatinine (1:x) 74.00-106.00 7.00-18.00 0.50-1.30 10.00-20.00 128 21 1.7 12.4 Na (meq/l) K (meq/l) 136.00-145.00 3.50-5.10 139 3.8 INR (PTT:PT) 0.90-1.10 1.1 CPK-MB (ng/ML) 0.50-3.60 Not Drawn Medication Medication Total Dose (Bolus/Oral) Medication Total Dosage/Unit 1% XYLOCAINE 10 mL Medications (Bolus/Oral) Medication Time Given Dosage/Unit Administered By Reason 1% XYLOCAINE 09/30/2017 7:38:35 AM 10 mL Dane Hadley 10 mL 1% XYLOCAINE given in lab by Dane Hadley in Right Groin via Subcutaneous. Ordered by Dane Hadley. Medication (Drip) Medication Time Given Dosage/Unit Concentration/Unit Diluent (ml) Solution IV Solutions 09/30/2017 7:07:14 AM 0 mL (IV) 500 NaCl .9 Patient arrived on IV Solutions in Left Forearm via Peripheral IV. Pump/Drip Flow = 20 ml/hr using Na Cl .9. Initial Case Assessment Cardiovascular HR Rhythm NIBP Chest Pain 70 nsr 130/70 0 Edema Present Skin color Skin None Normal Warm Dry Circulatory - Right Pulses Dorsalis Pedis Femoral 2 2 Scale (0,1,2,3,4,d) Circulatory - Left Pulses Dorsalis Pedis Femoral 2 2 Scale (0,1,2,3,4,d) Neurological State Oriented to time-place- Alert Moves all extremities person Respiration - General Respiration Rate SpO2 (%) (B/min) 15 96 Final Case Assessment Cardiovascular HR Rhythm NIBP Chest Pain 62 nsr 120/70 0 Edema Present Skin color Skin None Normal Warm Dry Circulatory - Right Pulses Dorsalis Pedis Femoral 2 2 Scale (0,1,2,3,4,d) Circulatory - Left Pulses Dorsalis Pedis Femoral 2 2 Scale (0,1,2,3,4,d) Neurological State Oriented to time-place- Alert Moves all extremities person Respiration - General Respiration Rate SpO2 (%) (B/min) 15 96 Chronological Log Time Study Chronological Log 7:07:05 Patient arrived via Bed. 7:07:05 Patient Name, D.O.B, / Armband Verified By R.N. 7:07:06 Consent signed by the physician and the patient and verified by the Territory Business Manager staff. 7:07:06 Pre-op and post- op instructions given; patient acknowledges understanding of instructions. 7:07:07 Verbal Stimulation=2 Physical Stimulation=2 Airway=2 Respiration=2 TOTAL=8. (0=absent, 1=li mited, 2=present) 7:07:08 Presedation assessment performed by Territory Business Manager RN. 7:07:08 Immediate Presedation assesment performed by physician. 7:07:09 Patient has been NPO for More than 6Hrs. 7:07:10 Skin Breakdown- none per patient 7:07:11 Patient Warmer Placed on the Table. 7:07:13 Dina Prominences Protected 7:07:13 A # 20 IV was noted in the Forearm (left). Grade = 0 7:07:14 Patient arrived on IV Solutions in Left Forearm via Peripheral IV. Pump/Drip Flow = 20 ml/h r using NaCl .9. 7:07:14 History and physical on the chart or being dictated. Vitals capture started with the following parameters, Patient=Adult, Interval=5 min, Initial Pr dloiqf=377 mmHg, 7:16:39 Deflation Rate=5 mmHg, Cuff placed on Left Leg 7:17:24 HR=55 bpm, HTPV=273/70 mmhg, SpO2=97.0 %, Resp=15 B/min, Pain=0, Yaw=10, Rousseau=2 Assessment: Initial Case, HR=70 BPM, Rhythm=nsr, KPPU=225/70 mmhg, Chest Pain=0, Edema=None, Col or=Normal, Skin = Warm, Dry Right Pulses: Babak Ped=2, Femoral=2 7:18:03 Left Pulses: Babak Ped=2, Femoral=2 Neurological: State=Alert, Ox3, LANDRY Respiration: Resp=15 B/min, SpO2=96 % 7:18:32 Reference ECG taken 7:22:19 HR=67 bpm, DRPI=357/76 mmhg, SpO2=98.0 %, Resp=8 B/min, Pain=0, Yaw=10, Rousseau=2 7:25:44 Bilateral groins prepped with 2% chlorhexidine, and draped after a 3 minute waiting time. 7:26:02 Pressure channel 1 zeroed. 7:26:37 MD paged 7:27:20 HR=64 bpm, OHCK=194/66 mmhg, SpO2=94.0 %, Resp=11 B/min, Pain=0, Yaw=10, Rousseau=2 7:29:49 MD arrived. 7:32:17 HR=58 bpm, NJZQ=942/69 mmhg, SpO2=94.0 %, Resp=12 B/min, Pain=0, Yaw=10, Rousseau=2 7:37:18 HR=58 bpm, VPIM=137/66 mmhg, SpO2=96.0 %, Resp=10 B/min, Pain=0, Yaw=10, Rousseau=2 Time Out. Correct patient, correct procedure, correct physician, power injector not loaded with contrast with surgical 7:38:04 team present. Time Out Concurred by MD and individual staff in procedure. 7:38:25 Case Start 7:38:35 10 mL 1% XYLOCAINE given in lab by Dane Hadley in Right Groin via Subcutaneous. Ordered by Dane Hadley. 7:40:39 Access site was Right Femoral Artery. 7:40:46 A SHEATH, FR6.5 PRELUDE 11CM FR 6.5 was advanced into the Fem Art (right) using the Percutan eous technique. A PIGTAIL ANG. 145 INFINITI CATHETER FR 6 was advanced over a wire. OMNIPAQUE, 350 MG, 100ML 100 ML was 7:40:51 used for injections. 7:42:17 HR=60 bpm, XWWT=634/67 mmhg, SpO2=95.0 %, Resp=15 B/min, Pain=0, Yaw=10, Rousseau=2 Recorded Pressure: LV, HR=60, Condition=Condition 1 7:43:00 (Left Ventricle) LV 106/6/13 Recorded Pressure: LV, Ao, HR=58, Condition=Condition 1 7:43:09 (Left Ventricle) LV 106/6/14, (Aorta) Ao 109/62/82 A 3DRC INFINITI CATHETER FR 6 was advanced over a wire. OMNIPAQUE, 350 MG, 100ML 100ML was used for 7:43:56 injections. 7:44:51 The RCA was injected and visualized at various angles. OMNIPAQUE, 350 MG, 100ML 100ML used. Recorded Pressure: Ao, HR=61, Condition=Condition 1 7:45:05 (Aorta) Ao 106/61/81 7:45:15 Catheter was removed A JL 5.0 INFINITI CATHETER FR 6 was advanced over a wire. OMNIPAQUE, 350 MG, 100ML 100ML was use d for 7:45:16 injections. 7:47:35 The LCA was injected and visualized at various angles. OMNIPAQUE, 350 MG, 100ML 100ML used. 7:47:53 HR=63 bpm, COAS=746/60 mmhg, SpO2=95.0 %, Resp=16 B/min, Pain=0, Yaw=10, Rousseau=2 7:49:23 Catheter was removed 7:50:36 Cine recording checked. 7:52:19 HR=65 bpm, KEBV=827/72 mmhg, SpO2=93.0 %, Resp=19 B/min, Pain=0, Yaw=10, Rousseau=2 7:56:04 Case End Assessment: Final Case, HR=62 BPM, Rhythm=nsr, UWKW=866/70 mmhg, Chest Pain=0, Edema=None, Color =Normal, Skin = Warm, Dry Right Pulses: Babak Ped=2, Femoral=2 7:56:07 Left Pulses: Babak Ped=2, Femoral=2 Neurological: State=Alert, Ox3, LANDRY Respiration: Resp=15 B/min, SpO2=96 % 7:56:21 Catheter(s) removed without difficulty 7:56:22 Sheath(s) left in place, will be removed in Holding Area 7:56:24 Sterile dressing applied to site 7:56:24 No case complications noted. 7:56:25 Cine recording checked. 7:56:31 Bedside Report will be given. 7:56:33 Verbal Stimulation=2 Physical Stimulation=2 Airway=2 Respiration=2 TOTAL=8. (0=absent, 1=l imited, 2=present) 7:56:55 A Left Heart Cath was performed. 7:57:20 HR=64 bpm, EVRL=860/72 mmhg, SpO2=96.0 %, Resp=14 B/min, Pain=0, Yaw=10, Rousseau=2 8:00:45 Vitals capture stopped. 8:00:46 Patient moved to stretcher End Study - Contrast Media Used In Study Contrast Total Opened (mL) Total Used (mL) Total Wasted (mL) Omnipaque 50 50 0 End Study - Maximum Contrast Load Max Contrast Load (mL) 268.2 End Study - Radiation Exposure Fluoro Time (minutes) 1.6 End Study - Patient Disposition Complications Transferred To Interventional Outcome No Territory Business Manager Holding No attempt made
[2017-09-30] MEDS ORDERED: SODIUM CHLOR 0.9% 1000 ML INJ 1,000 ML IV SCH (08:30)
[2017-09-30] MEDS ORDERED: ONDANSETRON HCL 4 MG/2 ML VIAL IV PUSH PRN (08:45)
[2017-09-30] MEDS ORDERED: BACITRACIN OINT 0.9 GM PKT TOP ONE (08:45)
[2017-09-30] MEDS ORDERED: ATROPINE SULFATE 1 MG/ML VIAL IV PUSH PRN (08:45)
--- NOTE | 2017-09-30 08:55 | MA ---
cc: Dane Hadley MD 09/30/2017 PROCEDURE PERFORMED: Left heart catheterization, left ventriculography, coronary angiography. DESCRIPTION OF PROCEDURE: The patient was brought to the cardiac catheterization lab in fasting state. The right groin was prepped and draped in sterile fashion. Using 1% lidocaine for local anesthesia, a 6.5-Salvadorean sheath was inserted in the right femoral artery, requiring only a single stick. Left ventricular pressure was then recorded using a pigtail catheter, followed by a pullback. LV gram was not performed due to the elevated creatinine at 1.7. Coronary angiography was then completed of the right coronary artery, using a 3 DRC and then the left coronary artery, using a left 5 Veronique. Films were studied and I elected medical treatment initially. Total contrast load was 50 mL and there were no complications. The sheath is being pulled manually. FINDINGS: 1. Hemodynamics: Left ventricular pressure is 106/6 with an end diastolic pressure of 14. Aortic pressure is 106/61 with a mean of 81. During pullback from the left ventricle to the aorta, there was no gradient measured. 2. Coronary angiography: Left main coronary artery is large and normal-appearing. It bifurcates into the LAD and circumflex vessels. The circumflex artery is dominant and demonstrates diffuse 20% irregularities throughout. The major obtuse marginal branch has a 70% focal stenosis in its distal one-third. The left anterior descending artery demonstrates diffuse disease. There are proximal irregularities of 20%. Just past the major first septal service shop foreman branch is about a 25% stenosis. Then, at the bifurcation of a small diagonal branch the LAD has 50-60% stenosis. Distally, the LAD wraps around the apex. Prior to the apex, the LAD has a long distal stenosis of about 80% severity. The right coronary artery is nondominant and has about 50% disease. CONCLUSIONS: 1. Normal hemodynamics. 2. Three-vessel coronary artery disease. RECOMMENDATIONS: We will change his lisinopril to amlodipine and try to get the patient to quit smoking and try initial medical management first. If intervention is performed, would probably stent the long stenosis in the distal LAD and the focal stenosis in the mid LAD by the diagonal branch. Due to the elevated creatinine, this would entail considerable risk. We will see how medical management suffices initially. MD QUINCY Hanson , 08:03 AM , 08:53 AM
--- NOTE | 2017-09-30 09:18 | HHI.PR ---
Subjective Remarks seen back from cath no complains no chest pains, no cough, no shortness of breath Objective Vitals Vital Signs Date Time Temp Pulse Resp B/P (MAP) Pulse Ox O2 Delivery O2 Flow Rate FiO2 09/30/17 08:17 97 Room Air 09/30/17 03:41 59 09/30/17 03:30 97.4 76 20 123/56 (78) 97 09/30/17 03:30 Room Air 09/29/17 23:40 66 09/29/17 23:21 Room Air 09/29/17 23:21 98.3 65 18 121/77 (92) 95 09/29/17 20:00 98.0 79 20 109/85 (93) 97 09/29/17 19:53 98 21 09/29/17 19:42 70 09/29/17 18:11 Nasal Cannula 2.00 21 09/29/17 16:12 98.8 82 20 142/68 (92) 98 09/29/17 14:00 66 09/29/17 12:08 97.8 74 20 105/58 (74) 97 I/O 09/29/17 09/29/17 09/29/17 09/30/17 09/30/17 09/30/17 07:00 15:00 23:00 07:00 15:00 23:00 Intake Total 150 ml 2110 ml 1400 ml Output Total 200 ml 925 ml 550 ml Balance -50 ml -925 ml 1560 ml 1400 ml Intake Oral 960 ml 400 ml IV Total 150 ml 1150 ml 1000 ml Output Urine Total 200 ml 925 ml 550 ml # Voids 2 # Bowel Movements 1 Result Diagram: 09/29/17 0240 09/30/17 0550 Imaging Last Impressions Carotid Artery Ultrasound 09/29/17 0000 Signed Impressions: Service Date/Time: Friday, September 29, 2017 11:10 - CONCLUSION: 1. Bilateral calcified carotid plaque without significant flow-limiting stenosis. 2. Antegrade vertebral artery flow bilaterally. Thierry Richard MD Chest X-Ray 09/28/17 1501 Signed Impressions: Service Date/Time: Thursday, September 28, 2017 15:30 - CONCLUSION: 1. No acute cardiopulmonary findings are identified. Dre Traylor MD Objective Remarks alert, no acute distress anicteric lungs- no rales, no wheezes regular rhythm abdomen soft, nontender right groin- no hematoma no edema, good peripheral pulses Procedures 09/30- cardiac cath A/P Assessment and Plan 72 years old male CAD s.p cardiac cath- 3VD HYpertension - medical management - Plavix/ASA/Amlodipine/statins//nitrates - cardiology ff COPD exacerbation/shortness of breath- likely underlying COPD Improving. Patient is not on any home oxygen. Chest x-ray negative for acute process change to scheduled MDIs, prn neb. Smoking cessation.- reinforced - DC steroids Underlying CKD -ff BMP post cardiac cath -continue IVF JARETH/hypothyroidism Continue home medications Tobacco dependence Smoking cessation. reinforced DVT prophylaxis -On heparin. James Calvert MD Sep 30, 2017 09:18
[2017-09-30] MEDS ORDERED: PNEUMOCOCCAL POLYVALENT INJ 25 MCG/0.5 ML SYR IM ONE (10:00)
[2017-09-30 10:07] LABS: ALBUMIN 3.4 GM/DL (3.4-5.0); DIRECT BILIRUBIN ADULT 0.1 MG/DL (0.0-0.2)
[2017-09-30 10:09] LABS: CHOLESTEROL/ HDL RATIO 2.93 RATIO; HDL CHOLESTEROL 48.8 MG/DL (40.0-60.0); INDIRECT BILIRUBIN 0.4 MG/DL (0.0-0.8); TOTAL BILIRUBIN ADULT 0.5 MG/DL (0.2-1.0); TOTAL PROTEIN 6.3 GM/DL (6.4-8.2)
[2017-09-30] MEDS: METOPROLOL SUCCINATE 50 MG EXTENDED RELEASE TAB PO SCH (11:25)
[2017-09-30] MEDS: HEPARIN SODIUM - SQ 10,000 UNITS/ML VIAL SQ SCH ×2 (11:25→20:22)
[2017-09-30] MEDS: SODIUM CHLORIDE 0.9% FLUSH 10 ML FLUSH IV FLUSH SCH ×2 (11:25→20:22)
[2017-09-30] MEDS: guaiFENesin E.R. 600 MG TAB PO SCH ×2 (11:27→20:21)
[2017-09-30] MEDS: amLODIPine BESYLATE 5 MG TAB PO SCH (11:36)
[2017-09-30] MEDS: CLOPIDOGREL 75 MG TAB PO SCH (11:37)
[2017-09-30] MEDS: ATORVASTATIN 40 MG TAB PO SCH (11:37)
[2017-09-30 11:42] VITALS: O2SAT 98
--- NOTE | 2017-09-30 11:43 | ECHRPT ---
Indication: CONCLUSIONS Normal left ventricular size. Mild concentric left ventricular hypertrophy. The left ventricular systolic function is normal with an estimated ejection fraction in the range of 55-60%. The left atrial size is mildly dilated. Trace mitral valve regurgitation. BP: 101 / 58 HR: 89 Rhythm: Sinus MEASUREMENTS (Male / Female) Normal Values Technical Quality:Fair 2D ECHO LV Diastolic Diameter PLAX 3.1 cm 4.2 - 5.9 / 3.9 - 5.3 cm LV Systolic Diameter PLAX 2.3 cm IVS Diastolic Thickness 1.0 cm 0.6 - 1.0 / 0.6 - 0.9 cm LVPW Diastolic Thickness 1.0 cm 0.6 - 1.0 / 0.6 - 0.9 cm LV Relative Wall Thickness 0.7 RV Internal Dim ED PLAX 2.9 cm LVOT Diameter 2.3 cm Aortic Root Diameter 3.1 cm LA Systolic Diameter LX 3.7 cm 3.0 - 4.0 / 2.7 - 3.8 cm M-MODE AV Cusp Separation MM 2.3 cm DOPPLER AV Peak Velocity 114.0 cm/s AV Peak Gradient 5.2 mmHg AV Mean Gradient 3.0 mmHg AV Velocity Time Integral 25.4 cm LVOT Peak Velocity 70.7 cm/s LVOT Peak Gradient 2.0 mmHg LVOT Velocity Time Integral 11.7 cm AV Area Cont Eq vti 1.9 cm AV Area Cont Eq pk 2.6 cm Mitral E Point Velocity 66.6 cm/s Mitral A Point Velocity 77.5 cm/s Mitral E to A Ratio 0.9 LV E' Lateral Velocity 11.8 cm/s Mitral E to LV E' Lateral Ratio 5.6 LV E' Septal Velocity 8.2 cm/s Mitral E to LV E' Septal Ratio 8.1 Right Atrial Pressure 10.0 mmHg PV Peak Velocity 55.6 cm/s PV Peak Gradient 1.2 mmHg FINDINGS LEFT VENTRICLE Normal left ventricular size. Mild concentric left ventricular hypertrophy. The left ventricular systolic function is normal with an estimated ejection fraction in the range of 55-60%. RIGHT VENTRICLE Normal right ventricular size and systolic function. LEFT ATRIUM The left atrial size is mildly dilated. RIGHT ATRIUM The right atrial size is normal. ATRIAL SEPTUM No atrial level shunt is demonstrated by color flow Doppler interrogation. AORTA The aortic root and proximal ascending aorta are not well visualized. MITRAL VALVE Trace mitral valve regurgitation. AORTIC VALVE Trileaflet aortic valve. No aortic valve stenosis or regurgitation. TRICUSPID VALVE Structurally normal tricuspid valve. No tricuspid valve stenosis or regurgitation. PULMONARY VALVE The pulmonary valve is not well visualized. VESSELS The inferior vena cava is normal in size. PERICARDIUM No pericardial effusion. Enrike Bourne MD, FACC Edited by: health data administrator health data administrator (Electronically Signed) Final Date:29 September 2017 13:23 Amended: 30 September 2017 11:41
[2017-09-30 12:00] VITALS: BP 146/74; PULSE 50; RESP 20; TEMP 97.9; O2SAT 99
[2017-09-30] MEDS ORDERED: RESP: ALBUTEROL 2.5 MG/IPRATROPIUM 0.5 MG NEB (PRN) NEB (14:15)
[2017-09-30 16:00] VITALS: BP 108/59; PULSE 65; PULSE 72; RESP 18; TEMP 97.8; O2SAT 95
[2017-09-30] MEDS: TIOTROPIUM BROMIDE 18 MCG INH INH SCH (16:14)
[2017-09-30] MEDS ORDERED: IOHEXOL 350 MG/ML 100 ML BTL (for Cath Lab) OTHER ONE (18:09)
[2017-09-30] MEDS: ALBUTEROL SULFATE 90 MCG/ACT HFA 8 GM INHALER INH SCH (18:37)
[2017-09-30 20:00] VITALS: BP 147/88; PULSE 61; RESP 18; TEMP 98.1; O2SAT 96
[2017-09-30] MEDS: TERAZOSIN HCL 5 MG CAP PO SCH (20:21)
[2017-10-01] VITALS: BP 132/74; PULSE 53; PULSE 69; RESP 18; TEMP 97.8; O2SAT 95
[2017-10-01] MEDS: NITROGLYCERIN 2% OINT 1 GM PACKET TOPICAL SCH ×4 (00:08→17:58)
[2017-10-01] MEDS: ALBUTEROL SULFATE 90 MCG/ACT HFA 8 GM INHALER INH SCH ×4 (00:08→17:58)
[2017-10-01] MEDS: SODIUM CHLOR 0.9% 1000 ML INJ 1,000 ML IV SCH ×2 (03:00→12:53)
[2017-10-01 04:00] VITALS: BP 149/88; PULSE 56; PULSE 62; RESP 18; TEMP 97.3; O2SAT 97
[2017-10-01] MEDS: LEVOTHYROXINE SODIUM 125 MCG TAB PO SCH (05:57)
[2017-10-01 08:00] VITALS: BP 157/89; PULSE 42; PULSE 55; RESP 18; TEMP 98.1; O2SAT 95
[2017-10-01] MEDS: ATORVASTATIN 40 MG TAB PO SCH (08:43)
[2017-10-01] MEDS: amLODIPine BESYLATE 5 MG TAB PO SCH (08:43)
[2017-10-01] MEDS: guaiFENesin E.R. 600 MG TAB PO SCH (08:43)
[2017-10-01] MEDS: TIOTROPIUM BROMIDE 18 MCG INH INH SCH (08:44)
[2017-10-01] MEDS: CLOPIDOGREL 75 MG TAB PO SCH (08:44)
[2017-10-01] MEDS: HEPARIN SODIUM - SQ 10,000 UNITS/ML VIAL SQ SCH (08:45)
[2017-10-01] MEDS: METOPROLOL SUCCINATE 50 MG EXTENDED RELEASE TAB PO SCH ×2 (08:45→12:04)
[2017-10-01] MEDS: SODIUM CHLORIDE 0.9% FLUSH 10 ML FLUSH IV FLUSH SCH (08:47)
[2017-10-01] MEDS ORDERED: ASPIRIN 81 MG CHEW TAB PO SCH (09:30)
--- NOTE | 2017-10-01 09:50 | PD.CARD.PN ---
Subjective Subjective Remarks No angina. SOB sl better but still unstable Objective Medications Current Medications Medications (Trade) Dose Ordered Sig/Mayte Route Start Time Stop Time Status Last Admin (NS Flush) 2 ml UNSCH PRN IV FLUSH 09/28/17 18:15 (NS Flush) 2 ml BID IV FLUSH 09/28/17 21:00 10/01/17 08:47 (Tylenol) 650 mg Q4H PRN PO 09/28/17 18:15 (Zofran Inj) 4 mg Q6H PRN IVP 09/28/17 18:15 09/30/17 06:11 (Narcan Inj) 0.4 mg UNSCH PRN IV PUSH 09/28/17 18:15 (Senokot) 17.2 mg Q12H PRN PO 09/28/17 18:15 (Dulcolax Supp) 10 mg DAILY PRN RECTAL 09/28/17 18:15 (Lactulose Liq) 30 ml DAILY PRN PO 09/28/17 18:15 09/30/17 20:20 (Synthroid) 125 mcg DAILY@0600 PO 09/29/17 06:00 10/01/17 05:57 (Toprol Xl) 50 mg DAILY PO 09/29/17 09:00 09/30/17 11:25 (Hytrin) 10 mg HS PO 09/28/17 21:00 09/30/17 20:21 (Mucinex Er) 600 mg BID PO 09/28/17 21:00 10/01/17 08:43 Sodium Chloride 1,000 ml @ 100 mls/hr Q10H IV 09/29/17 10:14 10/04/17 10:13 10/01/17 03:00 (Valium) 5 mg COMPOSITION INSTRUCTOR PO 09/29/17 10:15 10/03/17 10:14 09/30/17 06:53 (Benadryl) 25 mg COMPOSITION INSTRUCTOR PO 09/30/17 07:00 09/30/17 06:52 (Atropine Inj) 0.5 mg UNSCH PRN IV PUSH 09/30/17 08:45 (Zofran Inj) 4 mg Q4H PRN IV PUSH 09/30/17 08:45 (Nitroglycerin 2% Oint) 0.5 inch Q6HR TOPICAL 09/30/17 12:00 10/01/17 05:58 (Norvasc) 5 mg DAILY PO 09/30/17 09:00 10/01/17 08:43 (Plavix) 75 mg DAILY PO 09/30/17 09:00 10/01/17 08:44 (Lipitor) 40 mg DAILY PO 09/30/17 09:00 10/01/17 08:43 (Duoneb Neb) 1 ampule Q4HR NEB PRN NEB 09/30/17 14:15 (Spiriva Inh) 18 mcg DAILY INH 09/30/17 14:15 10/01/17 08:44 (Proair Hfa Inh) 2 puff Q6HR INH 09/30/17 18:00 10/01/17 06:00 (Aspirin) 81 mg COMPOSITION INSTRUCTOR PO 10/01/17 09:30 UNV Vital Signs / I&O Vital Signs Date Time Temp Pulse Resp B/P (MAP) Pulse Ox O2 Delivery O2 Flow Rate FiO2 10/01/17 08:00 98.1 55 18 157/89 (111) 95 10/01/17 04:00 Room Air 10/01/17 04:00 62 10/01/17 04:00 97.3 56 18 149/88 (108) 97 10/01/17 00:00 53 10/01/17 00:00 Room Air 10/01/17 00:00 97.8 69 18 132/74 (93) 95 09/30/17 20:00 Room Air 2.00 21 09/30/17 20:00 98.1 61 18 147/88 (107) 96 09/30/17 16:00 97.8 72 18 108/59 (75) 95 09/30/17 16:00 65 09/30/17 12:00 97.9 50 20 146/74 (98) 99 09/30/17 11:42 98 I/O 09/30/17 09/30/17 09/30/17 10/01/17 10/01/17 10/01/17 06:59 14:59 22:59 06:59 14:59 22:59 Intake Total 1550 ml 1000 ml Balance 1550 ml 1000 ml Intake Oral 400 ml IV Total 1150 ml 1000 ml # Voids 2 4 Physical Exam Alert Chest B/L wheezing CV S1S2 RRR Right groin OK BMP ordered Assessment and Plan Problem List: (1) 3-vessel coronary artery disease ICD Codes: I25.10 - Atherosclerotic heart disease of [place] coronary artery without angina pectoris Plan: Medical therapy as initial surgery. If fails, will stent his LAD (2) History of COPD ICD Codes: Z87.09 - Personal history of other diseases of the respiratory system Status: Acute Plan: Unstable (3) Tobacco dependence ICD Codes: F17.200 - Nicotine dependence, unspecified, uncomplicated Plan: counseled (4) Chronic kidney disease, stage 3 ICD Codes: N18.3 - Chronic kidney disease, stage 3 (moderate) Plan: BMP ordered Assessment and Plan CV meds optimized Dane Hadley MD Oct 01, 2017 09:50
[2017-10-01 12:00] VITALS: BP 146/85; PULSE 73; PULSE 80; RESP 18; TEMP 98.5; O2SAT 95
--- NOTE | 2017-10-01 12:16 | HHI.PR ---
Subjective Remarks denies any chest pain or shortness of breath wanting to go home Objective Vitals Vital Signs Date Time Temp Pulse Resp B/P (MAP) Pulse Ox O2 Delivery O2 Flow Rate FiO2 10/01/17 08:00 98.1 55 18 157/89 (111) 95 10/01/17 04:00 Room Air 10/01/17 04:00 62 10/01/17 04:00 97.3 56 18 149/88 (108) 97 10/01/17 00:00 53 10/01/17 00:00 Room Air 10/01/17 00:00 97.8 69 18 132/74 (93) 95 09/30/17 20:00 Room Air 2.00 21 09/30/17 20:00 98.1 61 18 147/88 (107) 96 09/30/17 16:00 97.8 72 18 108/59 (75) 95 09/30/17 16:00 65 09/30/17 12:00 97.9 50 20 146/74 (98) 99 I/O 09/30/17 09/30/17 09/30/17 10/01/17 10/01/17 10/01/17 07:00 15:00 23:00 07:00 15:00 23:00 Intake Total 1400 ml 1000 ml Balance 1400 ml 1000 ml Intake Oral 400 ml IV Total 1000 ml 1000 ml # Voids 2 4 Result Diagram: 09/29/17 0240 09/30/17 0550 Imaging Last Impressions Carotid Artery Ultrasound 09/29/17 0000 Signed Impressions: Service Date/Time: Friday, September 29, 2017 11:10 - CONCLUSION: 1. Bilateral calcified carotid plaque without significant flow-limiting stenosis. 2. Antegrade vertebral artery flow bilaterally. Thierry Richard MD Chest X-Ray 09/28/17 1501 Signed Impressions: Service Date/Time: Thursday, September 28, 2017 15:30 - CONCLUSION: 1. No acute cardiopulmonary findings are identified. Dre Traylor MD Objective Remarks alert, no acute distress anicteric lungs- no rales, no wheezes regular rhythm abdomen soft, nontender right groin- no hematoma no edema, good peripheral pulses Procedures 09/30- cardiac cath A/P Assessment and Plan 72 years old male CAD s/p cardiac cath- 3VD HYpertension - medical management - Plavix/ASA/Amlodipine/statins//nitrates - cardiology ff ? eventual plan for stent of LAD - COPD exacerbation/shortness of breath- likely underlying COPD History of JARETH -Improving. Patient is not on any home oxygen. -Chest x-ray negative for acute process -change to scheduled MDIs, prn neb. -Smoking cessation.- reinforced - d/w him to ff up with Dr. Coyle and get a new BiPAPA machine- current machine is not working and leaking water into his nose per patient - told him that this will make a big difference to his anginal symptoms Underlying CKD- nion oliguric -ff BMP post cardiac cath -continue IVF - check BMP JARETH/hypothyroidism- spoke with PCP office to send referral to Dr Coyle's [facility] office to get a new CPAP for JARETH - Continue home medications Tobacco dependence Smoking cessation. reinforced DVT prophylaxis -On heparin. DC planning James Calvert MD Oct 01, 2017 12:16
[2017-10-01 13:21] LABS: BICARBONATE 24.8 MEQ/L (21.0-32.0); CALCIUM 8.4 MG/DL (8.5-10.1); CREATININE 1.54 MG/DL (0.60-1.30)
[2017-10-01 16:00] VITALS: BP 135/83; PULSE 59; PULSE 67; RESP 18; TEMP 97.7; O2SAT 95
[2017-10-01] MEDS ORDERED: SPIRCAP INH (17:07)
[2017-10-01] MEDS ORDERED: PLAV75TA29 PO (17:07)
[2017-10-01] MEDS ORDERED: Albuterol Hfa Inh INH (17:07)
[2017-10-01] MEDS ORDERED: NITR2OIN TOPICAL (17:07)
[2017-10-01] MEDS ORDERED: ASPI81 PO (17:07)
[2017-10-01] MEDS ORDERED: ATOR40TA16 PO (17:07)
[2017-10-01] MEDS ORDERED: AMLO5 PO (17:07)
--- NOTE | 2017-10-01 17:10 | HHI.DS ---
Discharge Summary Admission Date Sep 28, 2017 at 18:13 Discharge Date: Oct 01, 2017 Admitting Diagnosis Shortnes of breath, epigastric pain/chest pain, ekg changes (1) 3-vessel coronary artery disease ICD Code: I25.10 - Atherosclerotic heart disease of [place] coronary artery without angina pectoris Diagnosis: Principal (2) Chronic kidney disease, stage 3 ICD Code: N18.3 - Chronic kidney disease, stage 3 (moderate) Diagnosis: Secondary (3) COPD (chronic obstructive pulmonary disease) ICD Code: J44.9 - Chronic obstructive pulmonary disease, unspecified Diagnosis: Secondary Procedures 09/30- cardiac cath Brief History - From Admission -year-old male with a past medical history significant for hypertension, COPD, hypothyroidism and JARETH presents to the emergency department for evaluation of epigastric pain. The patient states that his pain is in the epigastrium and radiates to his shoulder blades and is has accompanying lower substernal pain/ pressure. He describes pain as an 8 out of 10. He has a two-month history of this pain occurring intermittently. He has a cough productive of yellowish- green sputum. He also complains of paroxysmal nocturnal dyspnea. The patient denies any edema. Has no diagnosis of CHF. He works as accompanying shortness of breath and nausea. No emesis or diarrhea. No lateralizing signs/symptoms. Denies any fever/chills. CBC/BMP: 09/29/17 0240 10/01/17 1247 Significant Findings Laboratory Tests Test 09/28/17 17:22 09/28/17 21:20 09/29/17 01:44 09/29/17 02:40 Arterial Blood pH 7.48 (7.380-7.420) Arterial Blood Partial Pressure CO2 33 mmHg (38-42) Total Creatine Kinase 373 U/L (39-308) 447 U/L (39-308) Troponin I LESS THAN 0.02 NG/ML LESS THAN 0.02 NG/ML Urine Mucus FEW /lpf (OCC) Red Blood Count 3.98 MIL/MM3 (4.50-5.90) Hemoglobin 12.9 GM/DL (13.0-17.0) Hematocrit 37.4 % (39.0-51.0) Neutrophils (%) (Auto) 85.9 % (16.0-70.0) Neutrophils # (Auto) 8.4 TH/MM3 (1.8-7.7) Blood Urea Nitrogen 21 MG/DL (7-18) Creatinine 1.70 MG/DL (0.60-1.30) Random Glucose 128 MG/DL (74-106) Calcium Level 8.0 MG/DL (8.5-10.1) Chloride Level 108 MEQ/L (98-107) Estimat Glomerular Filtration Rate 40 ML/MIN (>89) Creatine Kinase MB 3.9 NG/ML (0.5-3.6) Test 09/30/17 05:50 10/01/17 12:47 Blood Urea Nitrogen 21 MG/DL (7-18) 23 MG/DL (7-18) Creatinine 1.56 MG/DL (0.60-1.30) 1.54 MG/DL (0.60-1.30) Random Glucose 122 MG/DL (74-106) Chloride Level 109 MEQ/L (98-107) 109 MEQ/L (98-107) Estimat Glomerular Filtration Rate 44 ML/MIN (>89) 45 ML/MIN (>89) Total Protein 6.3 GM/DL (6.4-8.2) Calcium Level 8.4 MG/DL (8.5-10.1) Imaging Last Impressions Carotid Artery Ultrasound 09/29/17 0000 Signed Impressions: Service Date/Time: Friday, September 29, 2017 11:10 - CONCLUSION: 1. Bilateral calcified carotid plaque without significant flow-limiting stenosis. 2. Antegrade vertebral artery flow bilaterally. Thierry Richard MD Chest X-Ray 09/28/17 1501 Signed Impressions: Service Date/Time: Thursday, September 28, 2017 15:30 - CONCLUSION: 1. No acute cardiopulmonary findings are identified. Dre Traylor MD PE at Discharge alert, no acute distress anicteric lungs- no rales, no wheezes regular rhythm abdomen soft, nontender right groin- no hematoma no edema, good peripheral pulses Pt update on day of discharge no complainst good po, no shortness of breath no swelling voiding well Hospital Course 72 years old male CAD s/p cardiac cath- 3VD HYpertension - medical management - Plavix/ASA/Amlodipine/statins//nitrates - cardiology ff - eventual plan for stent of LAD - OP ff up COPD exacerbation/shortness of breath- likely underlying COPD History of JARETH -Improving. Patient is not on any home oxygen. -Chest x-ray negative for acute process -change to scheduled MDIs, prn neb. -Smoking cessation.- reinforced - d/w him to ff up with Dr. Coyle and get a new BiPAPA machine- current machine is not working and leaking water into his nose per patient - told him that this will make a big difference to his anginal symptoms Underlying CKD- non oliguric -creatinine stable JARETH/hypothyroidism- spoke with PCP office to send referral to Dr Coyle's [facility] office to get a new CPAP for JARETH - Continue home medications Tobacco dependence Smoking cessation. reinforced DVT prophylaxis -On heparin. DC planning- today Pt Condition on Discharge: Stable Discharge Disposition: Discharge Home Discharge Time: > 30 minutes Discharge Instructions DIET: Follow Instructions for: Heart Healthy Diet Activities you can perform: Weight Bearing as Rene Activities to Avoid: Strenuous Activity Follow up Referrals: Cardiology - 1 Week with Dane Hadley MD PCP Follow-up New Medications: Amlodipine (Norvasc) 5 Mg Tab 5 MG PO DAILY for HTN for 30 Days, #30 TAB Aspirin (Tgt Aspirin) 81 Mg Chw 81 MG PO REPRODUCTION PRODUCTION MANAGER for CAD for 30 Days, EA Atorvastatin (Atorvastatin) 40 Mg Tab 40 MG PO DAILY for CAD for 30 Days, #30 TAB Clopidogrel (Plavix) 75 Mg Tab 75 MG PO DAILY for CAD for 30 Days, #30 TAB Nitroglycerin Topical (Nitro-Bid Topical) 2 % Oint 0.5 INCH TOPICAL Q6HR for CAD for 30 Days, TUBE Tiotropium Inh (Spiriva Handihaler) 18 Mcg Cap 18 MCG INH DAILY for COPD for 30 Days, #30 CAP 1 capsule = 18 mcg [Albuterol Hfa Inh] () 60 PUFF/8 GM AERO 2 PUFF INH Q6HR for HAD for 30 Days Continued Medications: Levothyroxine (Levothyroxine) 125 Mcg Tab 125 MCG PO DAILY for Thyroid, #30 TAB 0 Refills Metoprolol Succinate ER 24 HR (Metoprolol Succinate ER 24 HR) 50 Mg Tab 50 MG PO DAILY, #30 TAB 0 Refills Terazosin (Terazosin) 10 Mg Cap 10 MG PO HS, #30 CAP 0 Refills James Calvert MD Oct 01, 2017 17:10
== END 2017-10-01 18:31 | disposition home or self-care (01) | DRG 287 ==
LOC: NEPE 13:24 → NEDA 18:08 → OBSVTOIN 18:13 → NEDH 23:39 → NEDA 09-29 00:40 → NEDH 09-29 01:24 → N04A 09-29 17:49
PROVIDERS: ADMIT Internal Medicine; ATTEND Internal Medicine
PROC: 4A023N7 Measurement of Cardiac Sampling and Pressure, Left Heart, Percutaneous Approach (ICD-10-PCS; 2017-09-30)
PROC: B2111ZZ Fluoroscopy of Multiple Coronary Arteries using Low Osmolar Contrast (ICD-10-PCS; principal; 2017-09-30 07:15)
DX: I25.10 Atherosclerotic heart disease of native coronary artery without angina pectoris (principal); J44.1 Chronic obstructive pulmonary disease with (acute) exacerbation; I12.9 Hypertensive chronic kidney disease with stage 1 through stage 4 chronic kidney disease, or unspecified chronic kidney disease; N18.3 Chronic kidney disease, stage 3 (moderate); E03.9 Hypothyroidism, unspecified; G47.33 Obstructive sleep apnea (adult) (pediatric); F17.210 Nicotine dependence, cigarettes, uncomplicated; F12.90 Cannabis use, unspecified, uncomplicated; Z23 Encounter for immunization
CPT/HCPCS: 36600; 71045; 80048; 80061; 80076; 81001; 82550; 82552; 82805; 84484; 85025; 85610; 87804; 90732; 93005; 93306; 93458; 93880; 94150; 94640; 94664; 99152; 99285; C1769; C1893; G8987-GP; G8988-GP; G8989-GP; J1644; J1956; J2250; J2405; J2920; J7030; Q9967